=== PATIENT | female | born 1965 | race African-American/Black ===

== ENCOUNTER 2017-01-26 17:10 | Emergency (ER) | payer OTHER ==
[~2017-01-26] VITALS: Ht 160 cm; Wt 62.3 kg
[~2017-01-26 17:10] MED LIST: ALBU17AE16 IH; AMLO-512 PO; BENA10TA3 PO; GABA-531 PO; IBUP-1547 AD; OXYC10 PO
[2017-01-26] MEDS ORDERED: KETOROLAC TROMETHAMINE 30 MG/ML VIAL IM ONE (19:45)
[2017-01-26 20:31] LABS: APPEARANCE,URINE CLOUDY (CLEAR); GLUCOSE, URINE (UA) NEGATIVE (NEGATIVE); KETONES,URINE NEGATIVE (NEGATIVE); LEUKOCYTE ESTERASE ,URINE NEGATIVE (NEGATIVE); OCCULT BLOOD,URINE NEGATIVE (NEGATIVE); PROTEIN,URINE NEGATIVE (NEGATIVE)
[2017-01-26 20:49] LABS: ADD UA MICROSCOPIC YES
[2017-01-26 20:50] LABS: SQUAMOUS EPITHELIAL CELL,UR Rare /LPF (None Seen)
[2017-01-26 20:51] LABS: RBC,URINE 0-2 /HPF (0-2)
[2017-01-26] MEDS ORDERED: METHOCARBAMOL 500 MG TABLET PO ONE (21:00)
[2017-01-26] MEDS ORDERED: SULFAMETHOX/TRIMETH DS 800-160 MG/TABLET PO ONE ×2 (21:45)
[2017-01-26 21:54] VITALS: BP 130/74
== END 2017-01-26 21:55 | disposition home or self-care (01) ==
LOC: EMS 17:12
DX: N39.0 Urinary tract infection, site not specified (principal); G89.29 Other chronic pain; F17.210 Nicotine dependence, cigarettes, uncomplicated; J45.909 Unspecified asthma, uncomplicated; I10 Essential (primary) hypertension
CPT/HCPCS: 81001; 87077; 87086; 87186; 96372; 99284; J1885

== ENCOUNTER 2017-05-23 12:58 | Emergency (ER) | payer OTHER ==
[~2017-05-23] VITALS: Ht 160 cm; Wt 64.5 kg
[~2017-05-23 12:58] MED LIST changes: -ALBU17AE16 IH; -IBUP-1547 AD; +IBUP-2077 PO
[2017-05-23] MEDS ORDERED: BUPR1PAT2 TD (13:28)
[2017-05-23] MEDS ORDERED: OMEP20CA10 PO (13:28)
[2017-05-23] MEDS ORDERED: HYD25 PO (13:28)
[2017-05-23] MEDS ORDERED: CALC1TAB97 PO (13:28)
[2017-05-23] MEDS ORDERED: BENA20 PO (13:28)
[2017-05-23] MEDS ORDERED: OXYC5 PO (13:29)
[2017-05-23 13:58] LABS: APPEARANCE,URINE CLEAR (CLEAR); GLUCOSE, URINE (UA) NEGATIVE (NEGATIVE); KETONES,URINE NEGATIVE (NEGATIVE); LEUKOCYTE ESTERASE ,URINE NEGATIVE (NEGATIVE); OCCULT BLOOD,URINE NEGATIVE (NEGATIVE); PROTEIN,URINE NEGATIVE (NEGATIVE)
[2017-05-23 13:59] LABS: ADD UA MICROSCOPIC NO
[2017-05-23] MEDS ORDERED: OxyCODONE HCL/ACETAMINOPHEN 5-325 MG TABLET PO ONE (15:45)
[2017-05-23] MEDS ORDERED: KETOROLAC TROMETHAMINE 60 MG/2 ML VIAL IM ONE (15:45)
[2017-05-23 17:49] VITALS: BP 127/71
== END 2017-05-23 17:51 | disposition home or self-care (01) ==
LOC: EMS 13:00
DX: M48.061 Spinal stenosis, lumbar region without neurogenic claudication (principal); M54.42 Lumbago with sciatica, left side; J45.909 Unspecified asthma, uncomplicated; I10 Essential (primary) hypertension; F17.210 Nicotine dependence, cigarettes, uncomplicated
CPT/HCPCS: 72148; 81003; 96372; 99285; J1885

== ENCOUNTER 2019-01-26 18:25 | Emergency (ER) | payer MEDICARE, OTHER ==
[~2019-01-26] VITALS: Ht 160 cm; Wt 68.2 kg
[~2019-01-26 18:25] MED LIST changes: -AMLO-512 PO; +AMLO10TA7 PO; -BENA10TA3 PO; +BENA20 PO; +BUPR1PAT2 TD; +CALC1TAB97 PO; -GABA-531 PO; +HYD25 PO; +OMEP-50 PO; -OXYC10 PO; +OXYC5 PO
[2019-01-26 19:09] LABS: BASOPHILS % (AUTO) 0.9 % (0.0-2.0); EOSINOPHILS % (AUTO) 2.7 % (1.0-6.0); HEMATOCRIT 35.7 % (36-46); HEMOGLOBIN 11.4 g/dL (12.0-16.0); LYMPHOCYTES # (AUTO) 2.8 K/uL (1.0-4.8); LYMPHOCYTES % (AUTO) 30.3 % (22.0-44.0); MEAN CORPUSCULAR HGB CONC 31.9 G/dL (31.0-37.0); MEAN CORPUSCULAR VOLUME 88 fL (80-100); MONOCYTES # (AUTO) 0.6 K/uL (0.1-1.0); MONOCYTES % (AUTO) 6.7 % (2.0-9.0); NEUTROPHILS # (AUTO) 5.5 K/uL (1.8-7.7); NEUTROPHILS % (AUTO) 59.4 % (40.0-70.0); PLATELET COUNT (AUTO) 217 K/uL (150-450); RED BLOOD CELL COUNT(AUTO) 4.07 MIL/uL (4.00-5.20); RED CELL DISTRIBUTION WIDTH 13.8 % (11.5-14.5)
[2019-01-26 19:22] LABS: PROTHROMBIN TIME 10.8 SEC (9.4-11.6)
[2019-01-26 19:24] LABS: ANION GAP 4 mmol/L (8-16); CALCIUM, TOTAL 9.5 mg/dL (8.8-10.5); CARBON DIOXIDE 31 mmol/L (22-29); CHLORIDE 106 mmol/L (98-107); CREATININE 0.88 mg/dL (0.60-1.30); GLOMERULAR FILTR. RATE CALC > 60 mL/min (>60); GLUCOSE,RANDOM 96 mg/dL (70-110); POTASSIUM 4.1 mmol/L (3.5-5.1); SODIUM SERUM 141 mmol/L (136-145); UREA NITROGEN, BLOOD 9 mg/dL (7-18)
[2019-01-26 19:25] LABS: B-TYPE NATRIURETIC PEPTIDE 57 pg/mL (0-100)
[2019-01-26 19:49] LABS: ALANINE AMINOTRANSFERASE 9 U/L (12-78); ALBUMIN 3.3 g/dL (3.4-5.0); ALKALINE PHOSPHATASE 87 U/L (46-116); ASPARTATE AMINOTRANSFERASE 14 U/L (15-37); BILIRUBIN,TOTAL 0.3 mg/dL (0.1-1.0); CREATINE KINASE, TOTAL ONLY 103 U/L (26-192); TOTAL PROTEIN, SERUM 7.3 g/dL (6.4-8.2)
[2019-01-26] MEDS ORDERED: IPRATROPIUM BROMIDE 0.5 MG/2.5 ML NEB SOLUTION NEB ONE (20:00)
[2019-01-26] MEDS ORDERED: ALBUTEROL SULFATE 2.5 MG/0.5 ML NEB SOLUTION NEB ONE (20:00)
[2019-01-26] MEDS ORDERED: SODIUM CHLORIDE 0.9% 100 ML ONE (20:55)
[2019-01-26] MEDS ORDERED: IOVERSOL 350 MG/ML 100 ML VIAL ONE (20:55)
[2019-01-26 22:28] VITALS: BP 130/70
== END 2019-01-26 22:38 | disposition home or self-care (01) ==
LOC: EMS 18:27
DX: R07.89 Other chest pain (principal); J45.909 Unspecified asthma, uncomplicated; I10 Essential (primary) hypertension; F17.210 Nicotine dependence, cigarettes, uncomplicated; F12.90 Cannabis use, unspecified, uncomplicated
CPT/HCPCS: 71045; 71275; 80053; 82550; 83880; 84484; 85025; 85379; 85610; 85730; 93005; 94640; 99285; J7050; Q9967